=== PATIENT | male | born 1995 | race Hispanic/Latino ===

== ENCOUNTER 2021-12-16 21:43 | Emergency (ER) | payer SELFPAY ==
[2021-12-16] MEDS ORDERED: Tetracaine 0.5% PF 4 ML BOT ONE (22:02)
[2021-12-16] MEDS ORDERED: Fluorescein Opthalmic Strip ONE (22:02)
== END 2021-12-16 22:28 | disposition home or self-care (01) ==
LOC: CSHERS 21:43
DX: S05.01XA Injury of conjunctiva and corneal abrasion without foreign body, right eye, initial encounter (principal); F17.210 Nicotine dependence, cigarettes, uncomplicated
CPT/HCPCS: 99283